=== PATIENT | male | born 2000 | race African-American/Black ===

== ENCOUNTER 2021-04-26 16:53 | Emergency (ER) | payer OTHER ==
[~2021-04-26] VITALS: Ht 177.8 cm; Wt 97.7 kg
[2021-04-26] MEDS ORDERED: KETOROLAC TROMETHAMINE 10 MG TAB PO ONE (17:45)
[2021-04-26 19:09] VITALS: BP 150/68
== END 2021-04-26 19:09 | disposition home or self-care (01) ==
LOC: EDBD 16:53 → M ED 16:53
DX: S30.0XXA Contusion of lower back and pelvis, initial encounter (principal); S70.02XA Contusion of left hip, initial encounter; V49.50XA Passenger injured in collision with unspecified motor vehicles in traffic accident, initial encounter